=== PATIENT | female | born 1965 | race African-American/Black ===

== ENCOUNTER 2019-07-26 18:03 | Emergency (ER) | payer BC ==
[~2019-07-26] VITALS: Ht 152.4 cm; Wt 65.3 kg
[2019-07-26 18:12] VITALS: Ht 152.4 cm; Wt 65.3 kg
[2019-07-26 19:38] LABS: BASOPHIL % 0.5 % (0-2); PLATELET COUNT 147 x10^3mcL (130-400)
[2019-07-26 19:46] LABS: RED CELL DISTRIBUTION WIDTH 17.4 % (11.5-14.5)
[2019-07-26 19:55] LABS: CALCIUM 8.5 mg/dL (8.5-10.1); CARBON DIOXIDE 29.5 mmol/L (21-32); CHLORIDE SERUM 104 mmol/L (98-107); CREATININE SERUM 0.7 mg/dL (0.6-1.0); GFR1 > 60 mL/min; GLUCOSE SERUM 85 mg/dL (74-106); POTASSIUM SERUM 4.3 mmol/L (3.5-5.1); SODIUM SERUM 138 mmol/L (136-145)
[2019-07-26 19:59] LABS: ALBUMIN 3.5 g/dL (3.4-5.0); ALKALINE PHOSPHATASE 50 U/L (46-116); ALT/SGPT 14 U/L (14-59); AST/SGOT 18 U/L (15-37); BILIRUBIN TOTAL 0.25 mg/dL (0.20-1.00); CHOLESTEROL 171 mg/dL (<200); CHOLESTEROL/HDL RATIO 3.1; HDL CHOLESTEROL 56 mg/dL (40-60); LIPASE 50 IU/L (73-393); TOTAL PROTEIN, SERUM 7.3 g/dL (6.4-8.2); TRIGLYCERIDES 63 mg/dL (<150)
[2019-07-26 23:12] VITALS: BP 117/79
== END 2019-07-26 23:12 | disposition home or self-care (01) ==
LOC: ED 18:03
PROVIDERS: Emergency Medicine
DX: K21.9 Gastro-esophageal reflux disease without esophagitis (principal)
CPT/HCPCS: J3490; Q0092